=== PATIENT | female | born 1960 | race Caucasian/White ===

== ENCOUNTER 2019-03-18 18:19 | Emergency (ER) | payer OTHER ==
[~2019-03-18] VITALS: Ht 154.9 cm; Wt 81.5 kg
[2019-03-18] MEDS ORDERED: ANTIHYPERTENSIVE PO (19:04)
[2019-03-18] MEDS ORDERED: HYDROCHLOROTHIAZIDE 25 MG TABLET PO ONE (20:30)
[2019-03-18] MEDS ORDERED: ACETAMINOPHEN 325 MG TABLET PO ONE (20:30)
[2019-03-18 20:55] VITALS: BP 155/86
== END 2019-03-18 21:02 | disposition home or self-care (01) ==
LOC: EMS 18:22
DX: I10 Essential (primary) hypertension (principal); Z79.899 Other long term (current) drug therapy
CPT/HCPCS: 93005